=== PATIENT | female | born 1990 | race Caucasian/White ===

== ENCOUNTER 2017-01-21 08:25 | Emergency (ER) | payer OTHER ==
[2017-01-21 08:33] VITALS: BP 131/78
--- NOTE | 2017-01-21 08:53 | ED Physician Documentation ---
PD HPI SKIN - Stated complaint Stated Complaint: RASH ALL OVER - Chief complaint Chief Complaint: Wound - History obtained from History obtained from: Patient (Pt states that her 2 year old twins were dx with hand foot and mouth a couple days ago. the pt states that earlier this week she started to have a fever and not feeling well and then 3 days ago she started to have a rash on her hand and feet and mouth that has now spread to the rest of her body. does have fevers, has tried tylenol and motrin and benadryl at home. No respiratory issues, no GI issues, no ABD pain, no travel, no ABX use, no new expsures, no problems tolerating PO intake. no joint pain, no hx of STD's.) Review of Systems Constitutional: reports: Fever, Chills, Myalgias, Fatigue Eyes: denies: Photophobia Ears: denies: Drainage/discharge Nose: denies: Sinus pressure / pain Throat: reports: Oral lesions / sores, Sore throat. denies: Swollen tonsils Cardiac: denies: Chest pain / pressure, Palpitations Respiratory: denies: Dyspnea, Cough, Hemoptysis, Wheezing GI: denies: Abdominal Pain, Nausea, Vomiting, Constipation, Diarrhea, Hematemesis : denies: Dysuria, Frequency, Incontinent, Discharge, Vaginal bleeding, Now EGA Skin: reports: Rash, Lesions. denies: Abrasion (s), Laceration (s) Musculoskeletal: denies: Neck pain, Extremity pain, Joint pain, Extremity swelling, Joint swelling Neurologic: denies: Generalized weakness, Focal weakness, Headache PD PAST MEDICAL HISTORY - Past Medical History Past Medical History: No - Past Surgical History Past Surgical History: Yes /[employer]: section - Present Medications Home Medications: Ambulatory Orders Medication Instructions Recorded Confirmed hydrOXYzine HCl [Hydroxyzine HCl] 10 mg PO Q6HR PRN #14 tablet 01/21/17 - Allergies Allergies/Adverse Reactions: Allergies Allergy/AdvReac Type Severity Reaction Status Date / Time No Known Drug Allergies Allergy Verified 01/21/17 08:32 - Social History Does the pt smoke?: No Smoking Status: Never smoker PD ED PE NORMAL - Vitals Vital signs reviewed: Yes - General General: Alert and oriented X 3, No acute distress, Well developed/nourished - HEENT HEENT: Atraumatic, EOMI, Moist mucous membranes. No: Pharynx benign (Pt with red lesions with some ulcers in the oral pharynx, ) - Cardiac Cardiac: RRR, No murmur, No gallop, No rub - Respiratory Respiratory: No respiratory distress, Clear bilaterally - Abdomen Abdomen: Soft, Non tender, Non distended - Back Back: No CVA TTP - Derm Derm: Other (Pt with red well demarcared non vesicular non pustular, non ulcerated lesions to her hands, feet and upper and lower extremities, sone lesions to her ABD and back and face. ) - Extremities Extremities: No deformity, No edema - Neuro Neuro: Alert and oriented X 3 - Psych Psych: Normal mood, Normal affect Results - Vitals Vitals: Vital Signs - 24 hr 01/21/17 08:29 Temperature 36.5 C Heart Rate 95 Respiratory 18 Rate Blood Pressure 131/78 H O2 Saturation 100 Oxygen O2 Source Room air PD MEDICAL DECISION MAKING - ED course Complexity details: d/w patient ED course: pt with known hx of exposure to hand foot and mouth (kids). she now has the same symptoms. her rash is not C/W chicken pox, lyme, RMFS, TEN, SSSS, EM. no new exposures, not septic. her exam is very C/W hand foot and mouth. discussed with her. will give a rx for atarax for the symptoms. she was given return precautions. Departure - Departure Disposition: 01 Home, Self Care Clinical Impression: Hand, foot and mouth disease Condition: Good Instructions: Rash Skin Self Care Follow-Up: Primary,care provider [Other] Prescriptions: hydrOXYzine HCl [Hydroxyzine HCl] 10 mg PO Q6HR PRN #14 tablet PRN Reason: Rash Comments: Return to the ER for any new or worsening symptoms
== END 2017-01-21 09:05 | disposition home or self-care (01) ==
LOC: ED 08:25
DX: B08.4 Enteroviral vesicular stomatitis with exanthem (principal)
CPT/HCPCS: 99283